=== PATIENT | male | born 1970 | race Caucasian/White ===

== ENCOUNTER 2023-07-19 11:34 | Emergency (ER) | payer OTHER, MEDICAID, SELFPAY ==
[~2023-07-19] VITALS: Ht 177.8 cm; Wt 92.3 kg
[~2023-07-19 11:34] MED LIST: DIVA500T69 PO; LITH300C3 PO; LITH600C PO; TRAZ-252 PO
[2023-07-19 12:18] VITALS: TEMP 98.8
[2023-07-19 12:28] LABS: BASOPHILS % (AUTO) 0.7 % (0.0-2.0); EOSINOPHILS % (AUTO) 0.4 % (1.0-6.0); HEMATOCRIT 45.7 % (41-53); HEMOGLOBIN 15.9 g/dL (13.5-17.5); LYMPHOCYTES # (AUTO) 2.6 K/uL (1.0-4.8); LYMPHOCYTES % (AUTO) 11.5 % (22.0-44.0); MEAN CORPUSCULAR HEMOGLOBIN 31.9 pg (26.0-34.0); MEAN CORPUSCULAR HGB CONC 34.8 G/dL (31.0-37.0); MEAN CORPUSCULAR VOLUME 92 fL (80-100); MONOCYTES # (AUTO) 1.3 K/uL (0.1-1.0); MONOCYTES % (AUTO) 5.5 % (2.0-9.0); NEUTROPHILS # (AUTO) 18.8 K/uL (1.8-7.7); NEUTROPHILS % (AUTO) 81.9 % (40.0-70.0); PLATELET COUNT (AUTO) 248 K/uL (150-450); RED BLOOD CELL COUNT(AUTO) 4.99 MIL/uL (4.50-5.90); RED CELL DISTRIBUTION WIDTH 12.8 % (11.5-14.5)
[2023-07-19 12:32] VITALS: BP 139/81; PULSE 102; RESP 18
[2023-07-19 12:42] LABS: ANION GAP 10 mmol/L (8-16); CALCIUM, TOTAL 10.3 mg/dL (8.8-10.5); CARBON DIOXIDE 26 mmol/L (22-29); CHLORIDE 102 mmol/L (98-107); CREATININE 0.99 mg/dL (0.60-1.30); GLOMERULAR FILTR. RATE CALC > 60 mL/min (>60); GLUCOSE,RANDOM 90 mg/dL (70-110); POTASSIUM 4.1 mmol/L (3.5-5.1); SODIUM SERUM 138 mmol/L (136-145); UREA NITROGEN, BLOOD 16 mg/dL (7-18)
[2023-07-19] MEDS: LORazepam 2 MG TABLET PO ONE (12:44)
[2023-07-19] MEDS: PERTUSS(ACELL),DIPH,TET/PF 0.5 ML SYRINGE [ADULT] IM. ONE (12:46)
[2023-07-19 12:48] LABS: ALANINE AMINOTRANSFERASE 70 U/L (12-78); ALBUMIN 4.2 g/dL (3.4-5.0); ALKALINE PHOSPHATASE 127 U/L (46-116); ASPARTATE AMINOTRANSFERASE 34 U/L (15-37); BILIRUBIN,TOTAL 0.6 mg/dL (0.1-1.0); TOTAL PROTEIN, SERUM 8.2 g/dL (6.4-8.2)
[2023-07-19 12:49] LABS: ALCOHOL, BLOOD (SERUM) < 3 mg/dL (0-10); LITHIUM < 0.20 mmol/L (0.60-1.20)
[2023-07-20] MEDS ORDERED: DOXE100C4 PO (15:33)
[2023-07-20] MEDS ORDERED: TEMA30CA PO (15:33)
[2023-07-20] MEDS ORDERED: METO50 PO (15:33)
[2023-07-20] MEDS ORDERED: DIVA500T53 PO (15:33)
[2023-07-20] MEDS ORDERED: ALPR1TAB7 PO (15:33)
== END 2023-07-19 15:25 | disposition home or self-care (01) ==
LOC: EMS 11:34
DX: F25.9 Schizoaffective disorder, unspecified (principal)
CPT/HCPCS: 99285; 80053; 80178; 85025; 36415; 73120; 90715; 90471; 29125; G0480

== ENCOUNTER 2023-07-20 10:44 | Inpatient (IN) | payer MEDICARE, MEDICAID ==
[~2023-07-20] VITALS: Ht 177.8 cm; Wt 106.6 kg
[2023-07-20] MEDS ORDERED: ALPR1TAB7 PO (15:33)
[2023-07-20] MEDS ORDERED: METO50 PO (15:33)
[2023-07-20] MEDS ORDERED: TEMA30CA PO (15:33)
[2023-07-20] MEDS ORDERED: DIVA500T53 PO (15:33)
[2023-07-20] MEDS ORDERED: DOXE100C4 PO (15:33)
[2023-07-20 15:34] VITALS: BP 122/76; PULSE 102; RESP 18; TEMP 98.6; O2SAT 96
[2023-07-20] MEDS: LORazepam 2 MG TABLET PO PRN (18:01)
[2023-07-20] MEDS: ZOLPIDEM TARTRATE 10 MG TABLET PO PRN (21:03)
[2023-07-20 22:33] VITALS: BP 122/76; PULSE 102; RESP 18; TEMP 98.6
[2023-07-21] MEDS ORDERED: ACETAMINOPHEN 325 MG TABLET PO PRN (05:30)
[2023-07-21] MEDS ORDERED: ONDANSETRON HCL 4 MG TABLET PO PRN (05:30)
[2023-07-21] MEDS ORDERED: OMEPRAZOLE 20 MG CAPSULE PO PRN (05:30)
[2023-07-21] MEDS ORDERED: MAG HYDROX/ALUMINUM HYD/SIMETH ES 30 ML SUSPENSION UDCUP PO PRN (05:30)
[2023-07-21] MEDS ORDERED: IBUPROFEN 600 MG TABLET PO PRN (05:30)
[2023-07-21] MEDS ORDERED: CloNIDine HCL 0.1 MG TABLET PO PRN (05:30)
[2023-07-21] MEDS ORDERED: BACITRACIN 28 GM OINTMENT TP PRN (05:30)
[2023-07-21] MEDS ORDERED: LOPERAMIDE HCL 2 MG CAPSULE PO PRN (05:30)
[2023-07-21] MEDS ORDERED: PETROLATUM,WHITE 28 GM JELLY TP PRN (05:30)
[2023-07-21] MEDS ORDERED: ALBUTEROL SULFATE HFA 90 MCG/PUFF 8 GM INHALER IH PRN (05:30)
[2023-07-21] MEDS ORDERED: BENZOCAINE/MENTHOL LOZENGE PO PRN (05:30)
[2023-07-21 08:00] VITALS: BP 141/79; PULSE 94; RESP 18; TEMP 98
[2023-07-21 08:52] LABS: BASOPHILS % (AUTO) 0.6 % (0.0-2.0); HEMATOCRIT 46.6 % (41-53); HEMOGLOBIN 16.1 g/dL (13.5-17.5); LYMPHOCYTES # (AUTO) 2.9 K/uL (1.0-4.8); LYMPHOCYTES % (AUTO) 19.8 % (22.0-44.0); MEAN CORPUSCULAR HEMOGLOBIN 31.9 pg (26.0-34.0); MEAN CORPUSCULAR HGB CONC 34.6 G/dL (31.0-37.0); MEAN CORPUSCULAR VOLUME 92 fL (80-100); MONOCYTES # (AUTO) 0.8 K/uL (0.1-1.0); MONOCYTES % (AUTO) 5.2 % (2.0-9.0); NEUTROPHILS # (AUTO) 10.5 K/uL (1.8-7.7); NEUTROPHILS % (AUTO) 72.4 % (40.0-70.0); PLATELET COUNT (AUTO) 250 K/uL (150-450); RED BLOOD CELL COUNT(AUTO) 5.05 MIL/uL (4.50-5.90); RED CELL DISTRIBUTION WIDTH 12.9 % (11.5-14.5); WHITE BLOOD COUNT (AUTO) 14.5 K/uL (4.5-11.0)
[2023-07-21] MEDS: METOPROLOL TARTRATE 50 MG TABLET PO SCH (09:00)
[2023-07-21 09:08] LABS: ALCOHOL, BLOOD (SERUM) < 3 mg/dL (0-10)
[2023-07-21 09:18] LABS: ALANINE AMINOTRANSFERASE 55 U/L (12-78); ALBUMIN 3.9 g/dL (3.4-5.0); ALKALINE PHOSPHATASE 126 U/L (46-116); ANION GAP 5 mmol/L (8-16); ASPARTATE AMINOTRANSFERASE 31 U/L (15-37); BILIRUBIN,TOTAL 0.8 mg/dL (0.1-1.0); CALCIUM, TOTAL 10.1 mg/dL (8.8-10.5); CARBON DIOXIDE 30 mmol/L (22-29); CHLORIDE 102 mmol/L (98-107); CHOLESTEROL 185 mg/dL (131-200); CREATININE 0.99 mg/dL (0.60-1.30); FREE T4 (FREE THYROXINE) 1.12 ng/dL (0.76-1.46); GLOMERULAR FILTR. RATE CALC > 60 mL/min (>60); GLUCOSE,RANDOM 197 mg/dL (70-110); HDL CHOLESTEROL 46 mg/dL (40-60); LDL CHOL (CALC.) 118 mg/dL (0-130); POTASSIUM 4.5 mmol/L (3.5-5.1); SODIUM SERUM 137 mmol/L (136-145); T4 (THYROXINE) 9.2 mcg/dL (4.7-13.3); THYROID STIMULATING HORMONE 1.16 uIU/mL (0.36-3.74); TOTAL PROTEIN, SERUM 7.8 g/dL (6.4-8.2); TRIGLYCERIDES 104 mg/dL (15-150); UREA NITROGEN, BLOOD 17 mg/dL (7-18)
[2023-07-21 20:39] VITALS: BP 120/79; PULSE 99; RESP 18; TEMP 98.1
[2023-07-22 08:21] VITALS: BP 144/95; PULSE 100; RESP 18; TEMP 97.6; O2SAT 97
[2023-07-22 21:19] VITALS: BP 133/79; PULSE 74; RESP 16; TEMP 97.5; O2SAT 99
[2023-07-23 08:32] VITALS: BP 122/78; PULSE 93; RESP 18; TEMP 98; O2SAT 95
[2023-07-23 08:38] LABS: APPEARANCE,URINE CLEAR (CLEAR); BILIRUBIN,URINE NEGATIVE (NEGATIVE); COLOR,URINE YELLOW (YELLOW); GLUCOSE, URINE (UA) NEGATIVE (NEGATIVE); KETONES,URINE NEGATIVE (NEGATIVE); LEUKOCYTE ESTERASE ,URINE NEGATIVE (NEGATIVE); NITRATE,URINE NEGATIVE (NEGATIVE); OCCULT BLOOD,URINE NEGATIVE (NEGATIVE); PROTEIN,URINE NEGATIVE (NEGATIVE); SPECIFIC GRAVITIY, URINE 1.023 (1.003-1.030); UROBILINOGEN,URINE <=1.0 mg/dL (<=1.0)
[2023-07-23 08:42] LABS: ALCOHOL, URINE DRUG SCREEN NEGATIVE (NEGATIVE); AMPHET/METH SCREEN,URINE NEGATIVE (NEGATIVE); BARBITURATE SCREEN, URINE NEGATIVE (NEGATIVE); BENZODIAZEPINES SCREEN,URINE NEGATIVE (NEGATIVE); CANNABINOID SCREEN,URINE NEGATIVE (NEGATIVE); COCAINE SCREEN,URINE NEGATIVE (NEGATIVE); METHADONE SCREEN, URINE NEGATIVE (NEGATIVE); OPIATE SCREEN,URINE NEGATIVE (NEGATIVE); PHENCYCLIDINE SCREEN,URINE NEGATIVE (NEGATIVE)
[2023-07-23 20:31] VITALS: BP 150/83; PULSE 84; TEMP 96.7; O2SAT 94
[2023-07-24 09:26] VITALS: BP 143/81; PULSE 97; RESP 18; TEMP 98; O2SAT 94
[2023-07-24 16:29] VITALS: BP 144/84; PULSE 89; RESP 18; TEMP 97.7
[2023-07-24 20:28] VITALS: BP 129/65; RESP 17; O2SAT 96
[2023-07-25 08:05] VITALS: BP 131/85; RESP 16; TEMP 98.8; O2SAT 94
[2023-07-25 16:33] VITALS: BP 140/80; PULSE 82
[2023-07-25] MEDS: DIVALPROEX SODIUM 500 MG DR TABLET PO SCH (16:34)
[2023-07-25] MEDS: RisperiDONE 1 MG TABLET PO SCH (16:34)
[2023-07-25 21:12] VITALS: BP 134/78; PULSE 82; RESP 18; TEMP 98.1
[2023-07-26 14:53] VITALS: BP 131/85; PULSE 84; RESP 17; TEMP 98.5
[2023-07-26 20:39] VITALS: BP 116/75; PULSE 77; RESP 18; TEMP 97.9; O2SAT 96
[2023-07-27 08:39] VITALS: BP 127/86; PULSE 86; RESP 18; TEMP 97.7; O2SAT 96
[2023-07-27 16:06] VITALS: BP 133/81; PULSE 81; RESP 18; TEMP 97.7
[2023-07-27 20:47] VITALS: BP 141/83; PULSE 81; RESP 16; TEMP 98; O2SAT 96
[2023-07-28 08:10] VITALS: BP 136/72; PULSE 81; RESP 18; TEMP 97.6; O2SAT 97
[2023-07-28 20:25] VITALS: BP 124/88; PULSE 81; TEMP 97.9; O2SAT 98
[2023-07-29 08:25] VITALS: BP 157/89; PULSE 90; RESP 18; TEMP 98.2; O2SAT 92
[2023-07-29] MEDS: DOCUSATE SODIUM 100 MG CAPSULE PO PRN (14:13)
[2023-07-29 16:41] VITALS: BP 135/77; PULSE 74; RESP 18
[2023-07-30 00:39] VITALS: BP 150/77; PULSE 84; RESP 16; TEMP 98.2; O2SAT 98
[2023-07-30 08:45] VITALS: BP 117/63; PULSE 89; RESP 18; TEMP 97.7; O2SAT 95
[2023-07-30 16:07] VITALS: BP 121/77; PULSE 86; RESP 18; TEMP 97.8
[2023-07-30 20:13] VITALS: BP 128/64; PULSE 72; RESP 17; TEMP 98.2; O2SAT 96
[2023-07-30] MEDS: HALOPERIDOL 5 MG TABLET PO PRN (22:00)
[2023-07-31 08:27] VITALS: BP 118/60; PULSE 71; RESP 17; TEMP 97.8; O2SAT 97
[2023-07-31 20:28] VITALS: BP 111/57; PULSE 90; RESP 18; TEMP 97.7; O2SAT 95
[2023-07-31] MEDS: MAGNESIUM HYDROXIDE SUSPENSION 30 ML UDCUP PO PRN (20:28)
[2023-08-01 08:26] VITALS: BP 140/80; PULSE 100; RESP 18; TEMP 97.9; O2SAT 100
[2023-08-01 22:44] VITALS: BP 127/73; PULSE 76; RESP 18; TEMP 98.2; O2SAT 96
[2023-08-02 08:38] VITALS: BP 135/77; PULSE 82; RESP 16; TEMP 98; O2SAT 98
[2023-08-02 20:17] VITALS: BP 123/61; PULSE 71; TEMP 98; O2SAT 99
[2023-08-03 08:32] VITALS: BP 118/77; PULSE 81; RESP 17; TEMP 97.8; O2SAT 98
[2023-08-03 20:54] VITALS: BP 124/74; PULSE 61; TEMP 98.6; O2SAT 97
[2023-08-04 08:04] VITALS: BP 155/90; PULSE 86; RESP 18; TEMP 98.4; O2SAT 95
[2023-08-04] MEDS ORDERED: RISP-31 PO (11:33)
[2023-08-04] MEDS ORDERED: DIVA-111 PO (11:35)
== END 2023-08-04 16:14 | disposition home or self-care (01) | DRG 885 ==
LOC: B3A 14:35
PROVIDERS: ADMIT Psychiatry & Neurology Psychiatry; ATTEND Psychiatry & Neurology Psychiatry
DX: F20.9 Schizophrenia, unspecified (principal); F41.9 Anxiety disorder, unspecified; G47.00 Insomnia, unspecified; I10 Essential (primary) hypertension; Z20.822 Contact with and (suspected) exposure to COVID-19
CPT/HCPCS: 80053; 80061; 80164; 80307; 81003; 83036; 84436; 84439; 84443; 85025; 86592; G0480